=== PATIENT | male | born 1975 ===

== ENCOUNTER 2016-05-28 07:52 | Emergency (ER) | payer OTHER ==
[2016-05-28 07:52] VITALS: BMI 107.6
[2016-05-28 08:09] VITALS: RESP 20
[2016-05-28] MEDS ORDERED: Sodium Chloride 0.9% 1,000 ML IV ONE (08:41)
--- NOTE | 2016-05-28 09:00 | C.PDOC ---
History Of Present Illness 40 y/o male presents to the ED with complaints of intermittent dizziness (room spinning) since yesterday, worse with movement of the head. Pt also reports persistent dull bilateral headache. Pt states was told he is prediabetic, checked blood sugar yesterday (was 117), so he 1/2 tab of his mother's metformin. Pt felt the same this morning so came to ED for evaluation. Pt also reports chronic occasional palpitations. He denies visual changes, facial droop , slurred speech, chest pain, SOB, extremity weakness, sensory changes. Time Seen by Provider: 05/28/16 08:18 Chief Complaint (Nursing): Dizziness/Lightheaded History Per: Patient History/Exam Limitations: no limitations Onset/Duration Of Symptoms: Hrs, Intermittent Episodes Current Symptoms Are (Timing): Still Present Fall Associated With With Symptoms: No Severity: Mild Past Medical History Reviewed: Historical Data, Nursing Documentation, Vital Signs Vital Signs: Last Vital Signs Temp 98.4 F 05/28/16 11:26 Pulse 68 05/28/16 11:26 Resp 20 05/28/16 11:26 BP 139/91 H 05/28/16 11:26 Pulse Ox 100 05/28/16 11:26 - Medical History PMH: Diabetes, HTN Surgical History: Endoscopy Family History: States: No Known Family Hx - Social History Hx Tobacco Use: No Hx Alcohol Use: No Hx Substance Use: No - Immunization History Hx Tetanus Toxoid Vaccination: Yes Hx Influenza Vaccination: Yes Hx Pneumococcal Vaccination: Yes Review Of Systems Except As Marked, All Systems Reviewed And Found Negative. Constitutional: Negative for: Fever, Chills Eyes: Negative for: Vision Change Cardiovascular: Positive for: Palpitations (chronic). Negative for: Chest Pain Respiratory: Negative for: Cough, Shortness of Breath Gastrointestinal: Negative for: Nausea, Vomiting, Abdominal Pain, Diarrhea Neurological: Positive for: Dizziness. Negative for: Weakness, Numbness, Change in Speech Physical Exam - Physical Exam Appears: Well, Non-toxic, No Acute Distress Skin: Warm, Dry, No Rash Head: Normacephalic Eye(s): bilateral: PERRL, EOMI, Other (occasional horizontal nystagmus) Ear(s): Bilateral: Normal Nose: Normal Oral Mucosa: Moist Neck: Normal, Normal ROM, Supple Chest: Symmetrical Cardiovascular: Rhythm Regular, No Murmur Respiratory: Normal Breath Sounds, No Rales, No Rhonchi, No Wheezing Extremity: Bilateral: Atraumatic Neurological/Psych: Oriented x3, Normal Speech, Normal Cognition, Normal Cranial Nerves, No Cerebellar Signs, Normal Motor, Normal Sensation Gait: Steady ED Course And Treatment - Laboratory Results Result Diagrams: 05/28/16 09:20 05/28/16 09:20 ECG: Interpreted By Me, Viewed By Me (NSR 65 bpm, normal axis, T wave inversions III, aVF, ST elevation in V3, V4 - unchanged from prior EKG 03/14/16) ECG Rhythm: Sinus Rhythm Rate From EC (BPM) O2 Sat by Pulse Oximetry: 96 (on room air) Pulse Ox Interpretation: Normal Progress Note: Plan: Blood work, EKG ordered and reviewed. Patient given IV NS bolus, PO meclzine. Reevaluation Time: 11:00 Reassessment Condition: Improved (Patient reassessed, is resting comfortably and states his symptoms have resolved. Blood work unremarkable, and EKG unchanged from prior. He was given Rx for meclizine, and instructed to follow up with PMD in 1-2 days, and ENtwithin 1 week. He understands he should return to ED if symptoms worsen.) Disposition Counseled Patient/Family Regarding: Studies Performed, Diagnosis, Need For Followup, Rx Given - Disposition Referrals: Elyssa Piña MD [Staff Provider] - Sergio Strauss MD [Staff Provider] - Disposition: HOME/ ROUTINE Disposition Time: 11:00 Condition: STABLE Additional Instructions: FOLLOW UP WITH ENT WITHIN 1 WEEK, AND WITH YOUR DOCTOR IN 1-2 DAYS DRINK PLENTY OF FLUIDS USE MEDICATION NEEDED RETURN TO ER IF SYMPTOMS WORSEN Prescriptions: Meclizine [Meclizine*] 25 mg PO Q6 #30 tab Instructions: Benign Paroxysmal Positional Vertigo (ED) Forms: General Discharge Instructions, Work Excuse Print Language: OCCITAN - POA Present On Arrival: None - Clinical Impression Clinical Impression: Peripheral vertigo - Scribe Statement The provider has reviewed the documentation as recorded by the Lynne Guillory Provider Attestation: All medical record entries made by the Danyelibe were at my direction and personally dictated by me. I have reviewed the chart and agree that the record accurately reflects my personal performance of the history, physical exam, medical decision making, and the department course for this patient. I have also personally directed, reviewed, and agree with the discharge instructions and disposition.
[2016-05-28 09:28] LABS: BASO % 0.5 % (0.0-2.0); EOS # 0.1 K/uL (0.0-0.7); EOS % 1.3 % (0.0-4.0); HEMATOCRIT 44.2 % (35.0-51.0); LYMPH # 2.1 K/uL (1.0-4.3); LYMPH % 22.8 % (20.0-40.0); MEAN CELL VOLUME 90.5 fL (80.0-94.0); MEAN CORPUSCULAR HEMOGLOBIN 29.5 pg (27.0-31.0); MEAN CORPUSCULAR HGB CONC 32.6 g/dL (33.0-37.0); MEAN PLATELET VOLUME 8.1 fL (7.2-11.7); MONO # 0.6 K/uL (0.0-0.8); MONO % 6.3 % (0.0-10.0); RED CELL DISTRIBUTION WIDTH 13.9 % (11.5-14.5); WHITE BLOOD COUNT 9.3 K/uL (4.8-10.8)
[2016-05-28 09:40] LABS: CHLORIDE 96 mmol/L (98-107); POTASSIUM 4.1 mmol/L (3.6-5.2); SODIUM 139 mmol/L (132-148)
[2016-05-28 09:42] LABS: BILIRUBIN,TOTAL 0.4 mg/dL (0.2-1.3); GFR AFRICAN-AMERICAN > 60
[2016-05-28 09:43] LABS: ALB/GLOB RATIO 1.4 (1.0-2.1); ALKALINE PHOSPHATASE 76 U/L (38-126); ALT/SGPT 42 U/L (21-72); AST/SGOT 26 U/L (17-59); BLOOD UREA NITROGEN 17 mg/dL (9-20); CARBON DIOXIDE 30 mmol/L (22-30); GLUCOSE,RANDOM 92 mg/dL (75-110); TOTAL PROTEIN 7.8 g/dL (6.3-8.3)
[2016-05-28 09:44] LABS: CALCIUM 8.9 mg/dl (8.6-10.4)
[2016-05-28 11:27] VITALS: BP 139/91; PULSE 68; TEMP 98.4
--- NOTE | 2016-05-30 19:10 | CARD ---
APPROVED REPORT EKG Measurement Heart [id number] <Conclusion> Normal sinus rhythm Possible Left atrial enlargement ST & T wave abnormality, consider inferior ischemia ST & T wave abnormality, consider anterolateral ischemia Abnormal ECG
[2016-06-08 09:07] VITALS: O2SAT 96
== END 2016-05-28 11:27 | disposition home or self-care (01) ==
LOC: C.ER 07:52
DX: H81.399 Other peripheral vertigo, unspecified ear (principal)
CPT/HCPCS: 80053; 82948; 85025; 93005; 96360; 99285; J7040

== ENCOUNTER 2017-09-05 06:27 | Day surgery (SDC) | payer OTHER ==
[2017-09-05] MEDS ORDERED: Propofol 10 mg/ml Inj (20 ML) ONE (07:57)
[2017-09-05] MEDS ORDERED: Midazolam 2 MG/2 ML VIAL ONE (07:57)
[2017-09-05 08:45] VITALS: TEMP 98.7
[2017-09-05 10:56] VITALS: BP 101/56; PULSE 68; RESP 15; O2SAT 97
== END 2017-09-05 09:50 | disposition home or self-care (01) ==
LOC: C.ENDO 06:27
PROVIDERS: ATTEND Internal Medicine Gastroenterology
DX: R10.13 Epigastric pain (principal); K44.9 Diaphragmatic hernia without obstruction or gangrene; K29.70 Gastritis, unspecified, without bleeding
CPT/HCPCS: 43239; 82948; 88305; 88312; 88313; 88342; J2001; J2250; J2704; J7040

== ENCOUNTER 2018-04-18 09:02 | Outpatient (CLI) | payer OTHER | END 2018-04-18 09:03 | disposition home or self-care (01) | LOC: C.LAB 09:02 ==